=== PATIENT | male | born 1960 | race Caucasian/White ===

== ENCOUNTER 2016-07-20 00:15 | Emergency (ER) | payer OTHER ==
[~2016-07-20] VITALS: Ht 177.8 cm; Wt 72.6 kg
[~2016-07-20 00:15] MED LIST: BACTRIM 400 MG-1 TAB PO; CELLCEPT500 M1 PO; CLEOCIN HCL150 MG PO; ENALAPRIL5 MG PO; MAGNESIUM400 M1 PO; NIFEDICAL XL30 MG PO; NORVASC5 MG PO; PRILOSEC20 MG PO; PROGRAF1 MG PO; SYNTHROID,LEVO25 MCG PO; TYLENOL W/CODEI1 TA2 PO
[2016-07-20 00:45] LABS: BASO % 0.5 % (0.0-1.0); EOS # 0.1 10*3/uL (0.0-0.4); HEMATOCRIT 36.5 % (42.0-52.0); HEMOGLOBIN 12.5 g/dl (14.0-18.0); IG # 0.1 10*3/uL (0.0-0.1); LYMPH # 1.3 10*3/uL (1.3-4.4); MEAN CELL VOLUME 82.6 fl (80.0-94.0); MEAN CORPUSCULAR HGB 28.3 pg (27.0-31.0); MEAN CORPUSCULAR HGB CONC 34.2 g/dl (33.0-37.0); MEAN PLATELET VOLUME 9.5 fl (9.6-12.3); MONO # 1.2 10*3/uL (0.1-1.0); MONO % 13.4 % (3.0-9.0); NEUT % 69.3 % (47.0-73.0); PLATELET COUNT AUTOMATED 318 10*3/uL (130-400); RED BLOOD COUNT 4.42 10*6/uL (4.50-5.90); RED CELL DISTRI WIDTH 13.1 % (0-14.5); WHITE BLOOD COUNT 8.7 10*3/uL (4.8-10.8)
[2016-07-20 00:56] LABS: PROTHROMBIN TIME 10.2 SECONDS (9.0-12.4)
[2016-07-20 01:06] LABS: ALBUMIN 2.8 gm/dl (3.1-4.5); BILIRUBIN, TOTAL 0.5 mg/dl (0.2-1.0); POTASSIUM 4.3 mmol/L (3.5-5.1); TOTAL PROTEIN 6.8 gm/dL (6.4-8.2)
[2016-07-20 01:12] LABS: C-REACTIVE PROTEIN 5.95 MG/DL (0-0.3); CKMB 2.6 ng/ml (0.5-3.6); MAGNESIUM 1.9 mg/dL (1.5-2.1)
[2016-07-20] MEDS ORDERED: ASPIR 8181 MG PO (01:41)
[2016-07-20] MEDS ORDERED: CELLCEPT500 MG PO (01:44)
[2016-07-20] MEDS ORDERED: PROGRAF0.5 MG PO (01:47)
== END 2016-07-20 04:35 | disposition short-term general hospital (02) ==
LOC: ED 00:15
PROVIDERS: Emergency Medicine
DX: A41.9 Sepsis, unspecified organism (principal); R65.20 Severe sepsis without septic shock; N17.9 Acute kidney failure, unspecified; J18.9 Pneumonia, unspecified organism; J96.01 Acute respiratory failure with hypoxia; Z88.0 Allergy status to penicillin; Z79.82 Long term (current) use of aspirin; Z94.0 Kidney transplant status; Z94.83 Pancreas transplant status